=== PATIENT | male | born 1995 | race Two or more races ===

== ENCOUNTER 2021-12-02 16:18 | Emergency (ER) | payer OTHER ==
[~2021-12-02] VITALS: Ht 172.7 cm; Wt 68.0 kg
[2021-12-02] MEDS ORDERED: DOXYCYCLINE HY100 M2 PO (18:49)
== END 2021-12-02 18:55 | disposition home or self-care (01) ==
LOC: ER 16:18 → EDSEX 16:23 → ER 18:55
DX: N48.29 Other inflammatory disorders of penis (principal); L08.0 Pyoderma; B95.61 Methicillin susceptible Staphylococcus aureus infection as the cause of diseases classified elsewhere

== ENCOUNTER 2021-12-06 10:35 | Outpatient (CLI) | payer OTHER ==
[~2021-12-06 10:35] MED LIST: DOXYCYCLINE HY100 M2 PO
== END 2021-12-06 10:40 | disposition home or self-care (01) ==
LOC: LAB 10:35
DX: B20 Human immunodeficiency virus [HIV] disease (principal)

== ENCOUNTER 2021-12-12 09:55 | Outpatient (CLI) | payer OTHER | END 2021-12-12 13:06 | disposition home or self-care (01) | LOC: LAB 09:55 | DX: B20 Human immunodeficiency virus [HIV] disease (principal) ==